=== PATIENT | male | born 1975 | race Caucasian/White ===

== ENCOUNTER 2022-10-30 19:48 | Emergency (ER) | payer OTHER, SELFPAY ==
--- NOTE | ~2022-10-30 | XR_ITS ---
EXAMINATION:[id number] DATE: 10/30/2022 20:30 INDICATION: Neck pain TECHNIQUE: AP, lateral, and odontoid views of the cervical spine are provided. COMPARISON: None FINDINGS: Alignment is normal. The odontoid process is intact. No fracture is identified. The vertebr al body heights are normal. There is mild loss of intervertebral disc space height throughout the cer vical spine. There is multilevel mild facet and uncovertebral joint osteoarthritis. Prevertebral soft tissues are normal. IMPRESSION: 1. Mild cervical spondylosis without acute findings. If there is high clinical suspicion for cervical spine fracture, follow-up with CT would be recommended. Reviewed, dictated and finalized at location F.
--- NOTE | ~2022-10-30 | XR_ITS ---
EXAMINATION: XR thoracic spine 3V DATE: 10/30/2022 20:31 INDICATION: Back pain TECHNIQUE: AP, lateral and lateral swimmer's views of the thoracic spine were obtained. COMPARISON: None. FINDINGS: Bone alignment is normal. There is no fracture. There is mild loss of intervertebral disc s pace height at multiple levels in the thoracic spine. The vertebral body heights are normal. IMPRESSION: 1. Mild thoracic spondylosis without acute findings. Reviewed, dictated and finalized at location F.
[2022-10-30 20:09] VITALS: BP 149/97; PULSE 75; RESP 18; TEMP 36.2; O2SAT 99
[2022-10-30 20:11] VITALS: BP 149/97; PULSE 75; RESP 18; TEMP 36.2; O2SAT 99
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
== END 2022-10-30 20:53 | disposition home or self-care (01) ==
PROVIDERS: Emergency Provider Nurse Practitioner Family
DX: S16.1XXA Strain of muscle, fascia and tendon at neck level, initial encounter (principal); V43.51XA Car driver injured in collision with sport utility vehicle in traffic accident, initial encounter; M54.6 Pain in thoracic spine
CPT/HCPCS: 72040; 72072; 99213; G0463